=== PATIENT | female | born 2005 | race Caucasian/White ===

== ENCOUNTER 2023-04-16 01:23 | Inpatient (IN) ==
[2023-04-16 02:50] LABS: Appearance Urine Clear (Clear); Bacteria Urine Automated Negative (Negative); Bilirubin Urine Negative (Negative); Blood Urine Trace (Negative); Cast Urine Automated 0 /lpf (0-5); Color Urine Yellow; Glucose Urine UA Negative (Negative); Ketones Urine Negative (Negative); Leukocyte Esterase Urine Negative (Negative); Nitrite Urine Negative (Negative); Protein Urine Negative (Negative); RBC Urine Automated 0-4 /hpf (0-4); Specific Gravity Urine 1.004 (1.000-1.030); Urobilinogen Urine Negative (Negative); WBC Urine Automated 0 /hpf (0-5); pH Urine 7.5 (4.5-7.5)
[2023-04-16 02:51] LABS: Pregnancy Test, Serum Negative (Negative)
[2023-04-16 02:54] LABS: Acetaminophen < 3 ug/ml (10-30); Basophils # (auto) 0.04 K/uL (0.00-0.20); Basophils % (auto) 0.6 %; Eosinophils # (auto) 0.08 K/uL (0.00-0.50); Eosinophils % (auto) 1.1 %; Hematocrit (blood only) 36.6 % (37.0-47.0); Hemoglobin 12.9 g/dl (12.0-16.0); Immature Granulocytes # (auto) 0.01 K/uL (0.01-0.20); Immature Granulocytes % (auto) 0.1 %; Lymphocytes # (auto) 2.45 K/uL (1.20-3.40); Lymphocytes % (auto) 34.3 %; Mean Corpuscular Hemoglobin 31.7 pg (25.0-34.0); Mean Corpuscular Hgb Conc 35.2 g/dL (32.0-36.0); Mean Corpuscular Volume 89.9 fL (80.0-100.0); Mean Platelet Volume 11.4 fL (9.4-12.4); Monocytes # (auto) 0.19 K/uL (0.11-0.59); Monocytes % (auto) 2.7 %; Neutrophils # (auto) 4.37 K/uL (1.40-6.50); Neutrophils % (auto) 61.2 %; Platelet Count 236 K/uL (130-400); RDW Coefficient of Variation 12.3 % (11.5-14.5); RDW Standard Deviation 40.6 fL (36.4-46.3); Red Blood Count 4.07 M/uL (4.20-5.40); Salicylate < 3.0 mg/dl (3.0-30); White Blood Count 7.14 K/ul (4.8-10.8)
[2023-04-16 02:57] LABS: Alanine Aminotransferase 11 U/L (7-52); Albumin Globulin Ratio 1.8 (0.9-2); Albumin Level 4.8 gm/dl (3.4-5.0); Alkaline Phosphatase 54 U/L (34-104); Anion Gap 10 (3-11); Aspartate Aminotransferase 14 U/L (13-39); BUN Creatinine Ratio 10.8 (10-20); Bilirubin,Total 0.4 mg/dl (0.2-1.0); Blood Urea Nitrogen 7 mg/dl (6-23); Carbon Dioxide 23 mmol/L (21-32); Chloride 110 mmol/L (98-107); Est GFR (African American) 149.2 ml/min; Est GFR (Non-African American) 128.7 ml/min; Globulin 2.7 gm/dl (2.5-4.0); Glucose 114 mg/dl (70-99(Fasting)); Potassium 3.4 mmol/L (3.5-5.1); Sodium 143 mmol/L (136-145); Total Protein 7.5 gm/dl (6.0-8.3)
[2023-04-16 03:27] LABS: Amphetamines+Metham, Urine Neg (Neg); Barbiturates, Urine Neg (Neg); Benzodiazepine, Urine Neg (Neg); Cocaine, Urine Neg (Neg); MDMA (Ecstacy), Urine Neg (Neg); Methadone, Urine Neg (Neg); Opiate, Urine Neg (Neg); Phencyclidine, Urine Neg (Neg)
--- NOTE | 2023-04-16 05:23 | Emergency Department Note ---
Impression & Plan Suicide attempt by cutting of wrist, Alcohol intoxication The case was signed out to Dr. Walsh awaiting evaluation by the ED psychiatric case operator ED Provider Note NAME: PAOLA FREY AGE: 17 SEX: F ARRIVES VIA: [employer] INFORMANT: Patient ED PROVIDER(S): Anne Marie Connor DO CHIEF COMPLAINT: Suicidal ideation; left wrist laceration PLAN: Disposition: The case was signed out to Dr. Walsh awaiting evaluation by the ED psychiatric case operator Condition: Fair MEDICAL DECISION MAKING: This is a 17-year-old female patient who presents to the emergency department with police after cutting her left wrist with a knife. Patient had thoughts of suicide. She used a serrated knife to make a superficial laceration to the ventral surface of her left wrist. She also had thoughts of wanting to overdose on medications but could not find any meds to do so. She has had these thoughts for over a year but acted upon them tonight. She had been drinking alcohol tonight. The patient's alcohol level was greater than 200. We are awaiting sobriety so that the patient can be medically cleared and evaluated by the ED psychiatric case operator. The police have petitioned a 302 if the patient is unwilling to sign herself in voluntarily for inpatient psychiatric care. I discussed the nella e with the patient's mother who is arrived at the bedside. The case will be signed out to Dr. Walsh awaiting sobriety and further evaluation by the ED psychiatric case operator. Triage Nursing notes reviewed and agree with them. Vital Signs: reviewed and unremarkable Differential diagnosis: Alcohol intoxication, suicidal ideation, self-injurious behavior, suicide attempt, mood disorder Diagnostics independently interpreted by me: Laboratory studies: See below HPI: 17/F arrives for evaluation of wrist laceration. Patient has had suicidal thoughts intermittently over the past 1.5 years. Tonight, the patient used a serrated knife to cut the ventral surface of her left wrist. She also describes having thoughts of wanting to overdose on medications but was unable to find any medications to do so. She does admit to drinking some alcohol tonight. She denies any triggering or inciting events. PAST MEDICAL HISTORY:Patient describes feeling thoughts of suicide for more than 1 year. She has previously cut her left upper arm approximately 1 year ago. 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 She is from [facility]. She denies any drug use. She does occasionally drink alcohol. HOME MEDICATIONS: None ALLERGIES: Amoxicillin VITALS:See Below PHYSICAL EXAMINATION: HEENT: Head - normocephalic and atraumatic. Pupils are equal, round, and reactive to light. Extraocular eye muscles are intact, and sclera are anicteric. Nose - moist nasal mucosa without discharge. Mouth - moist buccal mucosa. Oropharynx is nonerythematous and there is no tonsillar exudate or edema noted. Neck: Supple; no cervical lymphadenopathy or thyromegaly Heart: Regular rate and rhythm. There is a normal S1 and S2 with no murmurs, clicks, or gallops appreciated. Lungs: Clear to auscultation bilaterally with no wheezes, rales, or rhonchi. Abdomen: Soft, completely nontender, nondistended, with good bowel sounds. There are no palpable pulsatile masses or hepatosplenomegaly. There is no gu arding, rigidity, or rebound noted. Extremities: 4 cm superficial laceration to the ventral left wrist. Skin: warm and dry with good turgor and no rashes. Psych: The patient is tearful and appears depressed. She does admit to being suicidal. ED COURSE: Times/Reassessments: 215: Patient was evaluated in room A-6. A complete history and physical was performed. Laboratory studies were drawn as above. Patient was resting comfortably. We are awaiting some time for her to sober up. The wound on her left wrist was cleansed and dressed with a sterile dressing. Patient is sleeping. Patient's mother has arrived at the bedside. The case was signed out to Dr. Walsh awaiting sobriety. Anne Marie Connor DO Past Med/Surg History Social History Smoking Status: Never smoker Preferred Language: Amharic Communication Ability: Effective Butt Maker Required: No Beliefs That Will Affect Care: None Feels Safe at Home: Yes Gender Identity: Female Assistive Devices: None Allergies Allergies Allergy/AdvReac Type Severity Reaction Status Date / Time amoxicillin Allergy Intermediate Hives Unverified 04/16/23 13:08 Results & Data (ED) Vital Signs Vital Signs - 24 hr 04/16/23 01:57 04/16/23 03:18 04/16/23 05:00 Temperature 36.7 C Temperature Source Oral Pulse Rate 98 H Respiratory Rate 20 Respiratory Effort / Characteristics Non-Labored Spontaneous Non-Labored Non-Labored Respiratory Depth Normal Normal Normal Respiratory Pattern Regular Regular Blood Pressure 125/77 Blood Pressure Mean 93 Pulse Oximetry 97 Oxygen Delivery Method Room Air Room Air Room Air Sepsis Recent Fever Within 48 Hours No Sepsis New/Unexplained Change in Mental Status No Sepsis Action Taken by Nursing No Action Required Laboratory Data 04/16/23 01:40 04/16/23 01:40 Lab Results 04/16/23 04/16/23 04/16/23 Range/Units 01:31 01:31 01:40 WBC 7.14 (4.8-10.8) K/ul RBC 4.07 L (4.20-5.40) M/uL Hgb 12.9 (12.0-16.0) g/dl Hct 36.6 L (37.0-47.0) % MCV 89.9 (80.0-100.0) fL MCH 31.7 (25.0-34.0) pg MCHC 35.2 (32.0-36.0) g/dL RDW Std Deviation 40.6 (36.4-46.3) fL RDW Coeff of Aissatou 12.3 (11.5-14.5) % Plt Count 236 (130-400) K/uL MPV 11.4 (9.4-12.4) fL Immature Gran % (Auto) 0.1 % Neut % (Auto) 61.2 % Lymph % (Auto) 34.3 % [place] % (Auto) 2.7 % Eos % (Auto) 1.1 % Baso % (Auto) 0.6 % Neut # (Auto) 4.37 (1.40-6.50) K/uL Lymph # (Auto) 2.45 (1.20-3.40) K/uL [place] # (Auto) 0.19 (0.11-0.59) K/uL Eos # (Auto) 0.08 (0.00-0.50) K/uL Baso # (Auto) 0.04 (0.00-0.20) K/uL Immature Gran # (Auto) 0.01 (0.01-0.20) K/uL Sodium (136-145) mmol/L Potassium (3.5-5.1) mmol/L Chloride (98-107) mmol/L Carbon Dioxide (21-32) mmol/L Anion Gap (3-11) BUN (6-23) mg/dl Creatinine (0.6-1.2) mg/dl Est Cr Clr Drug Dosing Est GFR ( Amer) ml/min Est GFR (Non-Af Amer) ml/min BUN/Creatinine Ratio (10-20) Glucose (70-99(Fasting)) mg/dl Calcium (8.6-10.3) mg/dl Total Bilirubin (0.2-1.0) mg/dl AST (13-39) U/L ALT (7-52) U/L Alkaline Phosphatase (34-104) U/L Total Protein (6.0-8.3) gm/dl Albumin (3.4-5.0) gm/dl Globulin (2.5-4.0) gm/dl Albumin/Globulin Ratio (0.9-2) TSH (0.300-4.500) uIu/ml HCG, Qual (Negative) Urine Color Yellow Urine Appearance Clear (Clear) Urine pH 7.5 (4.5-7.5) Ur Specific Cord 1.004 (1.000-1.030) Urine Protein Negative (Negative) Urine Glucose (UA) Negative (Negative) Urine Ketones Negative (Negative) Urine Blood Trace H (Negative) Urine Nitrite Negative (Negative) Urine Bilirubin Negative (Negative) Urine Urobilinogen Negative (Negative) Ur Leukocyte Esterase Negative (Negative) Urine WBC (Auto) 0 (0-5) /hpf Urine RBC (Auto) 0-4 (0-4) /hpf U Hyaline Cast (Auto) 0 (0-5) /lpf U Epithel Cells (Auto) 5-10 H (0-5) /lpf Urine Bacteria (Auto) Negative (Negative) Salicylates (3.0-30) mg/dl Urine Opiates Screen Neg (Neg) Ur Methadone, Qual Neg (Neg) Acetaminophen (10-30) ug/ml Urine Barbiturates Neg (Neg) Ur Phencyclidine (PCP) Neg (Neg) U Amphetamin/Meth Scrn Neg (Neg) MDMA (Ecstasy) Screen Neg (Neg) U Benzodiazepines Scrn Neg (Neg) Ur Cocaine Metabolite Neg (Neg) U Marijuana (THC) Screen Neg (Neg) Ethyl Alcohol mg/dL (<10.0) mg/dl SARS-CoV-2, RNA, NAAT (NEGATIVE) 04/16/23 04/16/23 04/16/23 Range/Units 01:40 01:40 01:40 WBC (4.8-10.8) K/ul RBC (4.20-5.40) M/uL Hgb (12.0-16.0) g/dl Hct (37.0-47.0) % MCV (80.0-100.0) fL MCH (25.0-34.0) pg MCHC (32.0-36.0) g/dL RDW Std Deviation (36.4-46.3) fL RDW Coeff of Aissatou (11.5-14.5) % Plt Count (130-400) K/uL MPV (9.4-12.4) fL Immature Gran % (Auto) % Neut % (Auto) % Lymph % (Auto) % [place] % (Auto) % Eos % (Auto) % Baso % (Auto) % Neut # (Auto) (1.40-6.50) K/uL Lymph # (Auto) (1.20-3.40) K/uL [place] # (Auto) (0.11-0.59) K/uL Eos # (Auto) (0.00-0.50) K/uL Baso # (Auto) (0.00-0.20) K/uL Immature Gran # (Auto) (0.01-0.20) K/uL Sodium 143 (136-145) mmol/L Potassium 3.4 L (3.5-5.1) mmol/L Chloride 110 H (98-107) mmol/L Carbon Dioxide 23 (21-32) mmol/L Anion Gap 10 (3-11) BUN 7 (6-23) mg/dl Creatinine 0.65 (0.6-1.2) mg/dl Est Cr Clr Drug Dosing Not Reportable Est GFR ( Amer) 149.2 ml/min Est GFR (Non-Af Amer) 128.7 ml/min BUN/Creatinine Ratio 10.8 (10-20) Glucose 114 H (70-99(Fasting)) mg/dl Calcium 9.0 (8.6-10.3) mg/dl Total Bilirubin 0.4 (0.2-1.0) mg/dl AST 14 (13-39) U/L ALT 11 (7-52) U/L Alkaline Phosphatase 54 (34-104) U/L Total Protein 7.5 (6.0-8.3) gm/dl Albumin 4.8 (3.4-5.0) gm/dl Globulin 2.7 (2.5-4.0) gm/dl Albumin/Globulin Ratio 1.8 (0.9-2) TSH 2.668 (0.300-4.500) uIu/ml HCG, Qual (Negative) Urine Color Urine Appearance (Clear) Urine pH (4.5-7.5) Ur Specific Cord (1.000-1.030) Urine Protein (Negative) Urine Glucose (UA) (Negative) Urine Ketones (Negative) Urine Blood (Negative) Urine Nitrite (Negative) Urine Bilirubin (Negative) Urine Urobilinogen (Negative) Ur Leukocyte Esterase (Negative) Urine WBC (Auto) (0-5) /hpf Urine RBC (Auto) (0-4) /hpf U Hyaline Cast (Auto) (0-5) /lpf U Epithel Cells (Auto) (0-5) /lpf Urine Bacteria (Auto) (Negative) Salicylates < 3.0 L (3.0-30) mg/dl Urine Opiates Screen (Neg) Ur Methadone, Qual (Neg) Acetaminophen < 3 L (10-30) ug/ml Urine Barbiturates (Neg) Ur Phencyclidine (PCP) (Neg) U Amphetamin/Meth Scrn (Neg) MDMA (Ecstasy) Screen (Neg) U Benzodiazepines Scrn (Neg) Ur Cocaine Metabolite (Neg) U Marijuana (THC) Screen (Neg) Ethyl Alcohol mg/dL (<10.0) mg/dl SARS-CoV-2, RNA, NAAT (NEGATIVE) 04/16/23 04/16/23 04/16/23 Range/Units 01:40 01:40 07:49 WBC (4.8-10.8) K/ul RBC (4.20-5.40) M/uL Hgb (12.0-16.0) g/dl Hct (37.0-47.0) % MCV (80.0-100.0) fL MCH (25.0-34.0) pg MCHC (32.0-36.0) g/dL RDW Std Deviation (36.4-46.3) fL RDW Coeff of Aissatou (11.5-14.5) % Plt Count (130-400) K/uL MPV (9.4-12.4) fL Immature Gran % (Auto) % Neut % (Auto) % Lymph % (Auto) % [place] % (Auto) % Eos % (Auto) % Baso % (Auto) % Neut # (Auto) (1.40-6.50) K/uL Lymph # (Auto) (1.20-3.40) K/uL [place] # (Auto) (0.11-0.59) K/uL Eos # (Auto) (0.00-0.50) K/uL Baso # (Auto) (0.00-0.20) K/uL Immature Gran # (Auto) (0.01-0.20) K/uL Sodium (136-145) mmol/L Potassium (3.5-5.1) mmol/L Chloride (98-107) mmol/L Carbon Dioxide (21-32) mmol/L Anion Gap (3-11) BUN (6-23) mg/dl Creatinine (0.6-1.2) mg/dl Est Cr Clr Drug Dosing Est GFR ( Amer) ml/min Est GFR (Non-Af Amer) ml/min BUN/Creatinine Ratio (10-20) Glucose (70-99(Fasting)) mg/dl Calcium (8.6-10.3) mg/dl Total Bilirubin (0.2-1.0) mg/dl AST (13-39) U/L ALT (7-52) U/L Alkaline Phosphatase (34-104) U/L Total Protein (6.0-8.3) gm/dl Albumin (3.4-5.0) gm/dl Globulin (2.5-4.0) gm/dl Albumin/Globulin Ratio (0.9-2) TSH (0.300-4.500) uIu/ml HCG, Qual Negative (Negative) Urine Color Urine Appearance (Clear) Urine pH (4.5-7.5) Ur Specific Cord (1.000-1.030) Urine Protein (Negative) Urine Glucose (UA) (Negative) Urine Ketones (Negative) Urine Blood (Negative) Urine Nitrite (Negative) Urine Bilirubin (Negative) Urine Urobilinogen (Negative) Ur Leukocyte Esterase (Negative) Urine WBC (Auto) (0-5) /hpf Urine RBC (Auto) (0-4) /hpf U Hyaline Cast (Auto) (0-5) /lpf U Epithel Cells (Auto) (0-5) /lpf Urine Bacteria (Auto) (Negative) Salicylates (3.0-30) mg/dl Urine Opiates Screen (Neg) Ur Methadone, Qual (Neg) Acetaminophen (10-30) ug/ml Urine Barbiturates (Neg) Ur Phencyclidine (PCP) (Neg) U Amphetamin/Meth Scrn (Neg) MDMA (Ecstasy) Screen (Neg) U Benzodiazepines Scrn (Neg) Ur Cocaine Metabolite (Neg) U Marijuana (THC) Screen (Neg) Ethyl Alcohol mg/dL 234.8 H (<10.0) mg/dl SARS-CoV-2, RNA, NAAT NEGATIVE (NEGATIVE) Administered Medications Escitalopram Oxalate (Escitalopram Oxalate 10 Mg Tab) 5 mg PO QAM ERIKA Stop: 05/16/23 13:59 Last Admin: 04/16/23 14:01 Dose: 5 mg Documented By: BNT Hydroxyzine HCl (Hydroxyzine Hcl 25 Mg Tab) 25 mg PO Q4H PRN PRN Reason: Anxiety Stop: 05/16/23 10:05 Last Admin: 04/16/23 12:03 Dose: 25 mg Documented By: BNT Discharge Plan Visit Data Chief Complaint: Mental Health Evaluation ED Provider: Gulshan Walsh Discharge Problem: Suicide attempt by cutting of wrist, Alcohol intoxication Patient Disposition: Admitted As Inpatient Discharge Instructions Interventions: ED Discharge Assessment Last Done: 04/16/23 10:05
--- NOTE | 2023-04-16 06:54 | Emergency Department Note ---
ED Visit Note I assumed care at the change of shift. The patient had presented after cutting her wrist and thinking about overdosing on medication. She apparently has been feeling suicidal for over a year. She was intoxicated with alcohol and felt clear of the alcohol effect by around 7 AM. There was a 302 petition. Patient, however, was voluntary. The patient was seen by psychiatry case management. She was evaluated by our psychiatric services, 3 S. The patient has been accepted voluntarily onto their floor. The voluntary paperwork was completed and signed. .
[2023-04-16] MEDS ORDERED: ALUMINUM/MAGNESIUM SUSP 30 ML UDC PO PRN (10:06)
[2023-04-16] MEDS ORDERED: SODIUM CHLORIDE 0.65% NA SOLN 45 ML (OCEAN) PRN (10:06)
[2023-04-16] MEDS ORDERED: ACETAMINOPHEN 325 MG TAB PO PRN (10:06)
[2023-04-16] MEDS ORDERED: BISMUTH SUBSALICYLATE LIQD 236 ML PO PRN (10:06)
[2023-04-16] MEDS ORDERED: hydrOXYzine HCl 25 MG TAB PO PRN (10:06)
[2023-04-16] MEDS ORDERED: MAGNESIUM HYDROXIDE SUSP 30 ML UDC PO PRN (10:06)
[2023-04-16] MEDS: hydrOXYzine HCl 25 MG TAB PO PRN ×2 (12:03→21:56)
--- NOTE | 2023-04-16 13:24 | History & Physical ---
Date of Service April 16, 2023 Impression / Recommendations Maurice Fish is a 17 year old woman and [employer] student with no formal psychiatric history who was admitted for worsening depression, anxiety, and SI with plan. Diagnostically consistent with major depressive disorder with anxious features as well as FREDI. She is deemed in need of psychiatric hospitalization for diagnostic clarification, safety and stabilization, medication management and development of further coping skills. Discussed medication treatment options in detail. Discussed risks, benefits and alternatives. Patient would like to start and consented to escitalopram for MDD and FREDI. Reviewed side effects including but not limited to: GI, WOODY, sexual side effects, and counseled on black box warning of potential for emergence of or increased SI and need to let staff know should this occur or should they feel unsafe. Also discussed importance of seeking emergency care following discharge if this side effect occurs in the future. (1) Major depressive disorder with current active episode: (2) FREDI (generalized anxiety disorder): (3) Deliberate self-cutting: Plan 04/16/2023: The patient was admitted to the [facility] ([facility] mental health unit) on q15 min checks (behavioral with suicide precautions) for safety. The patient will participate in group, recreational, and milieu therapies and will be offered additional individual and family sessions as clinically appropriate. -start escitalopram 5mg qd Inventory Assets Strengths: supportive relationships, willing to get treatment Needs: safety and stabilization, medication adjustment, additional coping skills, increased outpatient services Suicide Risk Level Suicide Risk Level: High-Moderate (q15 min suicide checks) (severe depression with SI with plan prior to admission but feels safe in the hospital, able to safety contract and agrees to let nursing/staff know should they develop plan, intent or feel unable to remain safe. ) Risk Factors Assessment Male: No : Yes Do You Have Access To A Gun?: No Health Problems: No Mental Health Diagnoses: Yes Substance Use Disorders: No Previous Attempt: No Family History of Suicide: No Previous Psychiatric Hospitalization: No Protective Factors Assessment Employed: Yes Stable Relationships: Yes Supportive Family: Yes Psychiatric History Identifying Data PAOLA FREY is a 17-year-old woman and [employer] sophomore who currently lives in an apartment with roommates, has no formal psychiatric history, and was admitted on 04/16/23 09:06 on a 201 voluntary commitment for worsening depression and SI with cutting her wrist and plan of overdosing on medication. Chief Complaint "I just remember having the thought". History of Present Illness Polina presents for psychiatric admission for worsening depression, self-harm via cutting her left wrist and SI with plan of overdosing on medication. She just returned to campus for the start of the college semester. She was drinking last evening and then had thoughts of suicide and cut her wrist and then was thinking about taking medications but couldn't find any access in the moment. She believes her roommate then called police who brought her to the ED. She has been experiencing SI intermittently for the last 1.5 years but thoughts tend to worsen in the summer. She has a good relationship with her parents but feels like she is a burden to them and feels this way in other relationships as well. Recent transition of moving back to college campus and had been nervous about being around her roommate because "she can make me feel not the best about myself". She endorses depressive symptoms including anhedonia, tearfulness, self-guilt, decreased energy, decreased motivation, concentration has been about the same but not very good, sleep has been stable, appetite is variable because decreased and normal. She endorses anxiety symptoms including excessive worry, restlessness, somatic symptoms of chest tightness/stomach pain, mood lability "feeling like I need to sob", fatigue, muscle tension and one recent panic attack over the summer. She is not currently prescribed any psychiatric medications. Further recent history per ED CM on 04/16/2023: "Met with Paola - obtained her verbal consent to speak with father and advised mother in route to ED. Paola stated she cut herself with suicidal intent tonight. She stated she has been having thoughts of suicide for "past year and half." She was unable to identify any stressor or trigger. She presented tearful with flat affect. She reports previous suicide approx. 1 year ago by cutting her upper arm. She denies HI or aggression. She denies SIB. She denies hallucinations, paranoia, or delusional thinking. She denies any prior mental health diagnosis or treatment history. She stated she has no medical issues and does not take any medicate. She stated she consumes alcohol socially and had a "medium amount" to drink tonight. She denies substance use. She denies legal issues. She denies trauma or abuse history." Psychiatric ROS notable for no current nor history of symptoms of radha, psy chosis, OCD. History of excessive exercising to lose weight and eating very healthy meals around age [age], none currently. Self-harm once via cutting her upper arm >1 year ago. Past Psychiatric History Current Psychiatric Diagnosis: No previous mental health diagnosis Outpatient Services: none Previous Psych Admissions: none Do You Have Access To A Gun?: No History of Previous Suicide Attempt: No Past Medication Trials: none Past Head Trauma/Neuro History History of Concussion/Seizure: No Allergies Allergy/AdvReac Type Severity Reaction Status Date / Time amoxicillin Allergy Intermediate Hives Unverified 04/16/23 13:08 Family History Family History of: Depression (maternal side) and Anxiety (maternal side ) Alcohol History Hx of Alcohol Use Over the Past 12 Months: Yes (ocassional; social) AUDIT Total Score: 4 Doesn't drink alcohol often but when she does drink it's socially. No history of legal/social/academic consequences. Doesn't like that she has worse anxiety after drinking. Smoking Use Smoking Status: Never smoker Substance History Hx of Prescription Med Misuse Over the Past 12 Months: No Hx of Over the Counter Med Misuse Over the Past 12 Months: No Hx of Inhalent Misuse Over the Past 12 Months: No Hx of Organic Substance Use Over the Past 12 Months: No Hx of Illegal Substances/Street Drug Use Over Past 12 Months: No Problems as a Result of Past Substance Use: None Identified Personal History Living Arrangements: Dorm Childhood: From [facility] near [facility], parents are , has a younger brother Highest Grade Completed: Some College (sophomore in criminology/legal studies) Employment Status: Student (and part-time at [employer]) Marital Status: Single Number Of Children: 0 Beliefs That Will Affect Care: None Current Legal Problems: No Hx Legal Problems: No Hx Traumatic Life Events: No Patient History Social History Smoking Status: Never smoker Preferred Language: Macedonian Communication Ability: Effective Bridge Carpenter Required: No Beliefs That Will Affect Care: None Feels Safe at Home: Yes Gender Identity: Female Assistive Devices: None Review of Systems Review of Systems: All systems reviewed & are unremarkable except as noted in HPI & below (laceration to left wrist with bandage) Physical Exam Psychiatric: Orientation: alert and oriented x 3 Apperance: appropriately dressed and appropriately groomed Eye Contact: good eye contact Motor Behavior: no abnormal motor movements Speech: normal rate/rhythm/volume of speech Affect: + depressed affect and + anxious affect Mood: + depressed mood and + anxious mood Thought Process: goal directed thought process Thought Content: reality based without delusions Suicidal Thoughts: denies suicidal intent; + reports suicidal thoughts (intermittent thoughts ) and + reports suicidal plan (none for hospital, outside for overdosing) Homicidal Thoughts: denies homicidal thoughts Hallucinations: no auditory hallu cinations and no visual hallucinations Cognition: recent memory grossly intact, remote memory grossly intact, attention grossly intact and language grossly intact Estimated Intelligence: consistent with education level Insight: + fair insight Judgment: + limited judgement Vital Signs (Past 24 Hours): Last Vital Signs Temp 36.9 C 04/16/23 09:39 Pulse 85 04/16/23 09:39 Resp 18 04/16/23 09:39 BP 106/79 04/16/23 09:39 Pulse Ox 97 04/16/23 01:57 O2 Del Method Room Air 04/16/23 09:39 Exam Statement: A physical exam was performed in the ED by for the purposes of medical clearance. I accept that physical as correct and adequate for the purposes of the inpatient physical exam. Results & Data ([facility]) Laboratory Results Laboratory Results - last 24 hr 04/16/23 04/16/23 04/16/23 01:31 01:31 01:40 WBC 7.14 RBC 4.07 L Hgb 12.9 Hct 36.6 L MCV 89.9 MCH 31.7 MCHC 35.2 RDW Std Deviation 40.6 RDW Coeff of Aissatou 12.3 Plt Count 236 MPV 11.4 Immature Gran % (Auto) 0.1 Neut % (Auto) 61.2 Lymph % (Auto) 34.3 [place] % (Auto) 2.7 Eos % (Auto) 1.1 Baso % (Auto) 0.6 Neut # (Auto) 4.37 Lymph # (Auto) 2.45 [place] # (Auto) 0.19 Eos # (Auto) 0.08 Baso # (Auto) 0.04 Immature Gran # (Auto) 0.01 Sodium Potassium Chloride Carbon Dioxide Anion Gap BUN Creatinine Est Cr Clr Drug Dosing Est GFR ( Amer) Est GFR (Non-Af Amer) BUN/Creatinine Ratio Glucose Calcium Total Bilirubin AST ALT Alkaline Phosphatase Total Protein Albumin Globulin Albumin/Globulin Ratio TSH HCG, Qual Urine Color Yellow Urine Appearance Clear Urine pH 7.5 Ur Specific [place] 1.004 Urine Protein Negative Urine Glucose (UA) Negative Urine Ketones Negative Urine Blood Trace H Urine Nitrite Negative Urine Bilirubin Negative Urine Urobilinogen Negative Ur Leukocyte Esterase Negative Urine WBC (Auto) 0 Urine RBC (Auto) 0-4 U Hyaline Cast (Auto) 0 U Epithel Cells (Auto) 5-10 H Urine Bacteria (Auto) Negative Salicylates Urine Opiates Screen Neg Ur Methadone, Qual Neg Acetaminophen Urine Barbiturates Neg Ur Phencyclidine (PCP) Neg U Amphetamin/Meth Scrn Neg MDMA (Ecstasy) Screen Neg U Benzodiazepines Scrn Neg Ur Cocaine Metabolite Neg U Marijuana (THC) Screen Neg Ethyl Alcohol mg/dL SARS-CoV-2, RNA, NAAT 04/16/23 04/16/23 04/16/23 01:40 01:40 01:40 WBC RBC Hgb Hct MCV MCH MCHC RDW Std Deviation RDW Coeff of Aissatou Plt Count MPV Immature Gran % (Auto) Neut % (Auto) Lymph % (Auto) [place] % (Auto) Eos % (Auto) Baso % (Auto) Neut # (Auto) Lymph # (Auto) [place] # (Auto) Eos # (Auto) Baso # (Auto) Immature Gran # (Auto) Sodium 143 Potassium 3.4 L Chloride 110 H Carbon Dioxide 23 Anion Gap 10 BUN 7 Creatinine 0.65 Est Cr Clr Drug Dosing Not Reportable Est GFR ( Amer) 149.2 Est GFR (Non-Af Amer) 128.7 BUN/Creatinine Ratio 10.8 Glucose 114 H Calcium 9.0 Total Bilirubin 0.4 AST 14 ALT 11 Alkaline Phosphatase 54 Total Protein 7.5 Albumin 4.8 Globulin 2.7 Albumin/Globulin Ratio 1.8 TSH 2.668 HCG, Qual Urine Color Urine Appearance Urine pH Ur Specific [place] Urine Protein Urine Glucose (UA) Urine Ketones Urine Blood Urine Nitrite Urine Bilirubin Urine Urobilinogen Ur Leukocyte Esterase Urine WBC (Auto) Urine RBC (Auto) U Hyaline Cast (Auto) U Epithel Cells (Auto) Urine Bacteria (Auto) Salicylates < 3.0 L Urine Opiates Screen Ur Methadone, Qual Acetaminophen < 3 L Urine Barbiturates Ur Phencyclidine (PCP) U Amphetamin/Meth Scrn MDMA (Ecstasy) Screen U Benzodiazepines Scrn Ur Cocaine Metabolite U Marijuana (THC) Screen Ethyl Alcohol mg/dL SARS-CoV-2, RNA, NAAT 04/16/23 04/16/23 04/16/23 01:40 01:40 07:49 WBC RBC Hgb Hct MCV MCH MCHC RDW Std Deviation RDW Coeff of Aissatou Plt Count MPV Immature Gran % (Auto) Neut % (Auto) Lymph % (Auto) [place] % (Auto) Eos % (Auto) Baso % (Auto) Neut # (Auto) Lymph # (Auto) [place] # (Auto) Eos # (Auto) Baso # (Auto) Immature Gran # (Auto) Sodium Potassium Chloride Carbon Dioxide Anion Gap BUN Creatinine Est Cr Clr Drug Dosing Est GFR ( Amer) Est GFR (Non-Af Amer) BUN/Creatinine Ratio Glucose Calcium Total Bilirubin AST ALT Alkaline Phosphatase Total Protein Albumin Globulin Albumin/Globulin Ratio TSH HCG, Qual Negative Urine Color Urine Appearance Urine pH Ur Specific [place] Urine Protein Urine Glucose (UA) Urine Ketones Urine Blood Urine Nitrite Urine Bilirubin Urine Urobilinogen Ur Leukocyte Esterase Urine WBC (Auto) Urine RBC (Auto) U Hyaline Cast (Auto) U Epithel Cells (Auto) Urine Bacteria (Auto) Salicylates Urine Opiates Screen Ur Methadone, Qual Acetaminophen Urine Barbiturates Ur Phencyclidine (PCP) U Amphetamin/Meth Scrn MDMA (Ecstasy) Screen U Benzodiazepines Scrn Ur Cocaine Metabolite U Marijuana (THC) Screen Ethyl Alcohol mg/dL 234.8 H SARS-CoV-2, RNA, NAAT NEGATIVE Current Inpatient Medications Current Inpatient Medications: Current Inpatient Medications Acetaminophen (Acetaminophen 325 Mg Tab) 650 mg PO Q4H PRN PRN Reason: Headache or Minor Fever Stop: 05/16/23 10:05 Al Hydrox/Mg Hydrox/Simethicone (Aluminum/Magnesium Susp 30 Ml Udc) 30 ml PO Q4H PRN PRN Reason: GI Upset Stop: 05/16/23 10:05 Bismuth Subsalicylate (Bismuth Subsalicylate Liqd 236 Ml) 15 ml PO PRN PRN PRN Reason: Loose Stool Stop: 05/16/23 10:05 Hydroxyzine HCl (Hydroxyzine Hcl 25 Mg Tab) 50 mg PO HSZ PRN PRN Reason: Insomnia Stop: 05/16/23 10:05 Hydroxyzine HCl (Hydroxyzine Hcl 25 Mg Tab) 25 mg PO Q4H PRN PRN Reason: Anxiety Stop: 05/16/23 10:05 Last Admin: 04/16/23 12:03 Dose: 25 mg Magnesium Hydroxide (Magnesium Hydroxide Susp 30 Ml Udc) 30 ml PO DAILY PRN PRN Reason: Constipation Stop: 05/16/23 10:05 Sodium Chloride (Sodium Chloride 0.65% Na Soln 45 Ml ([place])) 1 - 2 sprays NA PRN PRN PRN Reason: Nasal Dryness/Congestion Stop: 05/16/23 10:05
[2023-04-16] MEDS: ESCITALOPRAM OXALATE 10 MG TAB PO SCH (14:01)
--- NOTE | 2023-04-17 08:51 | Psychiatric Progress Note ---
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 Diagnostically consistent with major depressive disorder with anxious features as well as FREDI. She is deemed in need of psychiatric hospitalization for diagnostic clarification, safety and stabilization, medication management and development of further coping skills. 04/17/2023: Mood improving, slight stomach issues with escitalopram but none today. Agrees to dose increase. SI reducing. Overall, I spent a total of 35 minutes with this case including review of chart records, direct evaluation of the patient at bedside, counseling the patient, ordering medication, discussion of the patient during treatment team, and documentation in the electronic health record. (1) Major depressive disorder with current active episode: (2) FREDI (generalized anxiety disorder): (3) Deliberate self-cutting: Plan 04/17/2023: Increase escitalopram to 10mg qAM tomorrow, needs family meeting 04/16/2023: The patient was admitted to the [facility] ([facility] mental health unit) on q15 min checks (behavioral with suicide precautions) for safety. The patient will participate in group, recreational, and milieu therapies and will be offered additional individual and family sessions as clinically appropriate. -start escitalopram 5mg qd Inventory Assets Strengths: supportive relationships, willing to get treatment Needs: safety and stabilization, medication adjustment, additional coping skills, increased outpatient services Suicide Risk Level Suicide Risk Level: Moderate (q15 min suicide checks) (depression with SI with plan prior to admission but mood improving feels safe in the hospital, able to safety contract and agrees to let nursing/staff know should they develop plan, intent or feel unable to remain safe. 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 Chief Complaint "I'm good". Review of Systems Sleep Information Total Hours of Sleep: 6.5 Meal Information Percent Meal Consumed - Lunch: 75 Percent Meal Consumed - Dinner: 0 Nutrition Comment: Admission Subjective Subjective Patient was seen & assessed and interval progress reviewed with treatment team nursing and social work. Had some stomach issues yesterday after getting escitalopram. Was able to attend evening meetings. Good visit with her parents last night. Today no stomach issues, agreeable to increasing escitalopram. Hopeful she may be able to discharge soon. Physical Exam Psychiatric Orientation: alert and oriented x 3 Apperance: appropriately dressed and appropriately groomed Eye Contact: good eye contact Motor Behavior: no abnormal motor movements Speech: normal rate/rhythm/volume of speech Affect: + anxious affect Mood: + anxious mood Thought Process: goal directed thought process Thought Content: reality based without delusions Suicidal Thoughts: denies suicidal thoughts, denies suicidal plan and denies suicidal intent Homicidal Thoughts: denies homicidal thoughts Hallucinations: no auditory hallucinations and no visual hallucinations Cognition: recent memory grossly intact, remote memory grossly intact, attention grossly intact and language grossly intact Estimated Intelligence: consistent with education level Insight: + fair insight Judgment: + limited judgement Vital Signs (Past 24 Hours) Last Vital Signs Temp 36.6 C 04/17/23 06:44 Pulse 71 04/17/23 06:45 Resp 16 04/17/23 06:44 BP 107/73 04/17/23 06:45 Pulse Ox 97 04/16/23 16:40 O2 Del Method Room Air 04/16/23 16:40 Results & Data ([facility]) Current Inpatient Medications Current Inpatient Medications: Current Inpatient Medications Acetaminophen (Acetaminophen 325 Mg Tab) 650 mg PO Q4H PRN PRN Reason: Headache or Minor Fever Stop: 05/16/23 10:05 Al Hydrox/Mg Hydrox/Simethicone (Aluminum/Magnesium Susp 30 Ml Udc) 30 ml PO Q4H PRN PRN Reason: GI Upset Stop: 05/16/23 10:05 Bismuth Subsalicylate (Bismuth Subsalicylate Liqd 236 Ml) 15 ml PO PRN PRN PRN Reason: Loose Stool Stop: 05/16/23 10:05 Escitalopram Oxalate (Escitalopram Oxalate 10 Mg Tab) 5 mg PO QAM ERIKA Stop: 05/16/23 13:59 Last Admin: 04/16/23 14:01 Dose: 5 mg Hydroxyzine HCl (Hydroxyzine Hcl 25 Mg Tab) 50 mg PO HSZ PRN PRN Reason: Insomnia Stop: 05/16/23 10:05 Hydroxyzine HCl (Hydroxyzine Hcl 25 Mg Tab) 25 mg PO Q4H PRN PRN Reason: Anxiety Stop: 05/16/23 10:05 Last Admin: 04/16/23 21:56 Dose: 25 mg Magnesium Hydroxide (Magnesium Hydroxide Susp 30 Ml Udc) 30 ml PO DAILY PRN PRN Reason: Constipation Stop: 05/16/23 10:05 Sodium Chloride (Sodium Chloride 0.65% Na Soln 45 Ml ([place])) 1 - 2 sprays NA PRN PRN PRN Reason: Nasal Dryness/Congestion Stop: 05/16/23 10:05 Mental Health & Subst Abuse Tx Therapist Name of Therapist: None Director Of Enterprise Architecture Name of Director Of Enterprise Architecture: None Post Discharge Appointments Primary Care Physician Name Of Family Doctor/PCP: SAM
[2023-04-17] MEDS: ESCITALOPRAM OXALATE 10 MG TAB PO SCH (08:55)
[2023-04-17] MEDS: hydrOXYzine HCl 25 MG TAB PO PRN (21:42)
[2023-04-18] MEDS ORDERED: ESCITALOPRAM OXALATE 10 MG TAB PO SCH (09:00)
--- NOTE | 2023-04-18 10:50 | Psychiatric Progress Note ---
Date of Service April 18, 2023 Impression / Recommendations Maurice Fish is a 17 year old woman and [employer] student with no formal psychiatric history who was admitted for worsening depression, anxiety, and SI with plan. Diagnostically consistent with major depressive disorder with anxious features as well as FREDI. She is deemed in need of psychiatric hospitalization for diagnostic clarification, safety and stabilization, medication management and development of further coping skills. 04/17/2023: Mood improving, slight stomach issues with escitalopram but none today. Agrees to dose increase. SI reducing. Overall, I spent a total of 35 minutes with this case including review of chart records, direct evaluation of the patient at bedside, counseling the patient, ordering medication, discussion of the patient during treatment team, and documentation in the electronic health record. (1) Major depressive disorder with current active episode: (2) FREDI (generalized anxiety disorder): (3) Deliberate self-cutting: Plan 04/17/2023: Increase escitalopram to 10mg qAM tomorrow, needs family meeting 04/16/2023: The patient was admitted to the [facility] ([facility] mental health unit) on q15 min checks (behavioral with suicide precautions) for safety. The patient will participate in group, recreational, and milieu therapies and will be offered additional individual and family sessions as clinically appropriate. -start escitalopram 5mg qd Inventory Assets Strengths: supportive relationships, willing to get treatment Needs: safety and stabilization, medication adjustment, additional coping skills, increased outpatient services Suicide Risk Level Suicide Risk Level: Moderate (q15 min suicide checks) (depression with SI with plan prior to admission but mood improving feels safe in the hospital, able to safety contract and agrees to let nursing/staff know should they develop plan, intent or feel unable to remain safe. 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 Chief Complaint "[]". Review of Systems Sleep Information Total Hours of Sleep: 6.5 Meal Information Percent Meal Consumed - Breakfast: 50 Percent Meal Consumed - Lunch: 100 Percent Meal Consumed - Dinner: 100 Nutrition Comment: Admission Subjective Subjective Patient was seen & assessed and interval progress reviewed with [treatment team] [nursing and social work] Physical Exam Psychiatric Orientation: alert and oriented x 3 Apperance: appropriately dressed and appropriately groomed Eye Contact: good eye contact Motor Behavior: no abnormal motor movements Speech: normal rate/rhythm/volume of speech Affect: + depressed affect and + anxious affect Mood: + depressed mood and + anxious mood Thought Process: goal directed thought process Thought Content: reality based without delusions Suicidal Thoughts: denies suicidal thoughts, denies suicidal plan and denies suicidal intent Homicidal Thoughts: denies homicidal thoughts Hallucinations: no auditory hallucinations and no visual hallucinations Cognition: recent memory grossly intact, remote memory grossly intact, attention grossly intact and language grossly intact Estimated Intelligence: consistent with education level Insight: + fair insight Judgment: + fair judgement Vital Signs (Past 24 Hours) Last Vital Signs Temp 36.7 C 04/18/23 06:38 Pulse 68 04/18/23 06:39 Resp 16 04/18/23 06:38 BP 110/72 04/18/23 06:39 Pulse Ox 97 04/16/23 16:40 O2 Del Method Room Air 04/16/23 16:40 Results & Data ([facility]) Current Inpatient Medications Current Inpatient Medications: Current Inpatient Medications Acetaminophen (Acetaminophen 325 Mg Tab) 650 mg PO Q4H PRN PRN Reason: Headache or Minor Fever Stop: 05/16/23 10:05 Al Hydrox/Mg Hydrox/Simethicone (Aluminum/Magnesium Susp 30 Ml Udc) 30 ml PO Q4H PRN PRN Reason: GI Upset Stop: 05/16/23 10:05 Bismuth Subsalicylate (Bismuth Subsalicylate Liqd 236 Ml) 15 ml PO PRN PRN PRN Reason: Loose Stool Stop: 05/16/23 10:05 Escitalopram Oxalate (Escitalopram Oxalate 10 Mg Tab) 10 mg PO QAM ERIKA Stop: 05/18/23 08:59 Last Admin: 04/18/23 09:29 Dose: 10 mg Hydroxyzine HCl (Hydroxyzine Hcl 25 Mg Tab) 50 mg PO HSZ PRN PRN Reason: Insomnia Stop: 05/16/23 10:05 Hydroxyzine HCl (Hydroxyzine Hcl 25 Mg Tab) 25 mg PO Q4H PRN PRN Reason: Anxiety Stop: 05/16/23 10:05 Last Admin: 04/17/23 21:42 Dose: 25 mg Magnesium Hydroxide (Magnesium Hydroxide Susp 30 Ml Udc) 30 ml PO DAILY PRN PRN Reason: Constipation Stop: 05/16/23 10:05 Sodium Chloride (Sodium Chloride 0.65% Na Soln 45 Ml ([place])) 1 - 2 sprays NA PRN PRN PRN Reason: Nasal Dryness/Congestion Stop: 05/16/23 10:05 Mental Health & Subst Abuse Tx Psychiatrist Name of Psychiatrist: None Therapist Name of Therapist: Dona Bran Therapist's Date of Therapist Appointment: 05/27/2023 Time of Therapist Appointment: 12:30pm Therapy Appointment Comment: [facility] [address], [address], [place], [place] Automatic Operator Name of Automatic Operator: Student Care and Advocacy Phone Number for Automatic Operator: [phone] Date of Appointment with Automatic Operator: 03 Time of Appointment with Automatic Operator: 11:15am Case Management Appointment Comment: Zoom link will be sent to [employer] email Post Discharge Appointments Primary Care Physician Name Of Family Doctor/PCP: [facility]- Precious Dennis Primary Care Date of Future Appointment with PCP: 04/22/23 Time of Appointment with PCP: 1100 Contact Information Discharge Discharge Address: [address] [place] [address]
--- NOTE | 2023-04-18 10:51 | Discharge Summary ---
Date of Service April 18, 2023 History of Present Illness Polina presents for psychiatric admission for worsening depression, self-harm via cutting her left wrist and SI with plan of overdosing on medication. She just returned to campus for the start of the college semester. She was drinking last evening and then had thoughts of suicide and cut her wrist and then was thinking about taking medications but couldn't find any access in the moment. She believes her roommate then called police who brought her to the ED. She has been experiencing SI intermittently for the last 1.5 years but thoughts tend to worsen in the summer. She has a good relationship with her parents but feels like she is a burden to them and feels this way in other relationships as well. Recent transition of moving back to college campus and had been nervous about being around her roommate because "she can make me feel not the best about myself". She endorses depressive symptoms including anhedonia, tearfulness, self-guilt, decreased energy, decreased motivation, concentration has been about the same but not very good, sleep has been stable, appetite is variable because decreased and normal. She endorses anxiety symptoms including excessive worry, restlessness, somatic symptoms of chest tightness/stomach pain, mood lability "feeling like I need to sob", fatigue, muscle tension and one recent panic attack over the summer. She is not currently prescribed any psychiatric medications. Further recent history per ED CM on 04/16/2023: "Met with Dayana - obtained her verbal consent to speak with father and advised mother in route to ED. Dayana stated she cut herself with suicidal intent tonight. She stated she has been having thoughts of suicide for "past year and half." She was unable to identify any stressor or trigger. She presented tearful with flat affect. She reports previous suicide approx. 1 year ago by cutting her upper arm. She denies HI or aggression. She denies SIB. She denies hallucinations, paranoia, or delusional thinking. She denies any prior mental health diagnosis or treatment history. She stated she has no medical issues and does not take any medicate. She stated she consumes alcohol socially and had a "medium amount" to drink tonight. She denies substance use. She denies legal issues. She denies trauma or abuse history." Psychiatric ROS notable for no current nor history of symptoms of radha, psychosis, OCD. History of excessive exercising to lose weight and eating very healthy meals around age [age], none currently. Self-harm once via cutting her upper arm >1 year ago. Physical Exam Psychiatric Orientation: alert and oriented x 3 Apperance: appropriately dressed and appropriately groomed Eye Contact: good eye contact Motor Behavior: no abnormal motor movements Speech: normal rate/rhythm/volume of speech Affect: + anxious affect and + constricted affect Mood: + anxious mood and + dysphoric mood Thought Process: goal directed thought process Thought Content: reality based without delusions Suicidal Thoughts: denies suicidal thoughts, denies suicidal plan and denies suicidal intent Homicidal Thoughts: denies homicidal thoughts Hallucinations: no auditory hallucinations and no visual hallucinations Cognition: recent memory grossly intact, remote memory grossly intact, attention grossly intact and language grossly intact Estimated Intelligence: consistent with education level Insight: + fair insight Judgment: + fair judgement Vital Signs (Past 24 Hours) Last Vital Signs Temp 36.7 C 04/18/23 06:38 Pulse 68 04/18/23 06:39 Resp 16 04/18/23 06:38 BP 110/72 04/18/23 06:39 Pulse Ox 97 04/16/23 16:40 O2 Del Method Room Air 04/16/23 16:40 See admission H&P and DOD assessment. Principal Diagnosis Major Depressive Disorder, Single Episode, Moderate Psychiatric Data See daily stay summary. In short, safety was maintained and the patient was cooperative with care. Medication changes included initiation of escitalopram at 5 mg daily and titration to 10 mg daily and they tolerated this well. A family session was held and safety plan was completed prior to discharge. Day of Discharge Assessment Today the patient voices readiness for discharge. They note improvement in mood and deny thoughts to harm self or others. Thoughts remain organized and they are improved from admission. There is no evidence of psychosis. They agree to take mediations as prescribed and keep follow-up appointments. They are stable for discharge to outpatient level of care. Transition of Care Transition Of Care Record: was reviewed with the patient Advance Directives Advance Directives Information Provided: Yes Advance Directives: No Mental Health Advance Directive: No Advance Directives on File: No Living Will: No Power of Automatic Toe Laster: No Advance Directives Reason:: Declines as Mental Health Visit. Risk Factors Assessment Male: No : Yes Do You Have Access To A Gun?: No Health Problems: No Mental Health Diagnoses: Yes Substance Use Disorders: No Previous Attempt: No Family History of Suicide: No Previous Psychiatric Hospitalization: No Protective Factors Assessment : No Responsible for Young Children: No Employed: Yes Stable Relationships: Yes Supportive Family: Yes Good Rapport with Provider: Yes Tobacco Cessation at Discharge Tobacco Cessation Medication Prescribed at Discharge: Not Applicable/Non-Smoker Total Time Total Time Spent: Greater Than 30 Minutes Total Time Includes: Examination of the patient, Discharge Planning, Medication Reconciliation and As well as (documentation) Discharge Data Lab Results 04/16/23 04/16/23 04/16/23 01:31 01:31 01:40 WBC 7.14 RBC 4.07 L Hgb 12.9 Hct 36.6 L MCV 89.9 MCH 31.7 MCHC 35.2 RDW Std Deviation 40.6 RDW Coeff of Aissatou 12.3 Plt Count 236 MPV 11.4 Immature Gran % (Auto) 0.1 Neut % (Auto) 61.2 Lymph % (Auto) 34.3 Garza % (Auto) 2.7 Eos % (Auto) 1.1 Baso % (Auto) 0.6 Neut # (Auto) 4.37 Lymph # (Auto) 2.45 Garza # (Auto) 0.19 Eos # (Auto) 0.08 Baso # (Auto) 0.04 Immature Gran # (Auto) 0.01 Sodium Potassium Chloride Carbon Dioxide Anion Gap BUN Creatinine Est Cr Clr Drug Dosing Est GFR ( Amer) Est GFR (Non-Af Amer) BUN/Creatinine Ratio Glucose Calcium Total Bilirubin AST ALT Alkaline Phosphatase Total Protein Albumin Globulin Albumin/Globulin Ratio TSH HCG, Qual Urine Color Yellow Urine Appearance Clear Urine pH 7.5 Ur Specific [place] 1.004 Urine Protein Negative Urine Glucose (UA) Negative Urine Ketones Negative Urine Blood Trace H Urine Nitrite Negative Urine Bilirubin Negative Urine Urobilinogen Negative Ur Leukocyte Esterase Negative Urine WBC (Auto) 0 Urine RBC (Auto) 0-4 U Hyaline Cast (Auto) 0 U Epithel Cells (Auto) 5-10 H Urine Bacteria (Auto) Negative Salicylates Urine Opiates Screen Neg Ur Methadone, Qual Neg Acetaminophen Urine Barbiturates Neg Ur Phencyclidine (PCP) Neg U Amphetamin/Meth Scrn Neg MDMA (Ecstasy) Screen Neg U Benzodiazepines Scrn Neg Ur Cocaine Metabolite Neg U Marijuana (THC) Screen Neg Ethyl Alcohol mg/dL SARS-CoV-2, RNA, NAAT 04/16/23 04/16/23 04/16/23 01:40 01:40 01:40 WBC RBC Hgb Hct MCV MCH MCHC RDW Std Deviation RDW Coeff of Aissatou Plt Count MPV Immature Gran % (Auto) Neut % (Auto) Lymph % (Auto) Garza % (Auto) Eos % (Auto) Baso % (Auto) Neut # (Auto) Lymph # (Auto) Garza # (Auto) Eos # (Auto) Baso # (Auto) Immature Gran # (Auto) Sodium 143 Potassium 3.4 L Chloride 110 H Carbon Dioxide 23 Anion Gap 10 BUN 7 Creatinine 0.65 Est Cr Clr Drug Dosing Not Reportable Est GFR ( Amer) 149.2 Est GFR (Non-Af Amer) 128.7 BUN/Creatinine Ratio 10.8 Glucose 114 H Calcium 9.0 Total Bilirubin 0.4 AST 14 ALT 11 Alkaline Phosphatase 54 Total Protein 7.5 Albumin 4.8 Globulin 2.7 Albumin/Globulin Ratio 1.8 TSH 2.668 HCG, Qual Urine Color Urine Appearance Urine pH Ur Specific [place] Urine Protein Urine Glucose (UA) Urine Ketones Urine Blood Urine Nitrite Urine Bilirubin Urine Urobilinogen Ur Leukocyte Esterase Urine WBC (Auto) Urine RBC (Auto) U Hyaline Cast (Auto) U Epithel Cells (Auto) Urine Bacteria (Auto) Salicylates < 3.0 L Urine Opiates Screen Ur Methadone, Qual Acetaminophen < 3 L Urine Barbiturates Ur Phencyclidine (PCP) U Amphetamin/Meth Scrn MDMA (Ecstasy) Screen U Benzodiazepines Scrn Ur Cocaine Metabolite U Marijuana (THC) Screen Ethyl Alcohol mg/dL SARS-CoV-2, RNA, NAAT 04/16/23 04/16/23 04/16/23 01:40 01:40 07:49 WBC RBC Hgb Hct MCV MCH MCHC RDW Std Deviation RDW Coeff of Aissatou Plt Count MPV Immature Gran % (Auto) Neut % (Auto) Lymph % (Auto) Garza % (Auto) Eos % (Auto) Baso % (Auto) Neut # (Auto) Lymph # (Auto) Garza # (Auto) Eos # (Auto) Baso # (Auto) Immature Gran # (Auto) Sodium Potassium Chloride Carbon Dioxide Anion Gap BUN Creatinine Est Cr Clr Drug Dosing Est GFR ( Amer) Est GFR (Non-Af Amer) BUN/Creatinine Ratio Glucose Calcium Total Bilirubin AST ALT Alkaline Phosphatase Total Protein Albumin Globulin Albumin/Globulin Ratio TSH HCG, Qual Negative Urine Color Urine Appearance Urine pH Ur Specific [place] Urine Protein Urine Glucose (UA) Urine Ketones Urine Blood Urine Nitrite Urine Bilirubin Urine Urobilinogen Ur Leukocyte Esterase Urine WBC (Auto) Urine RBC (Auto) U Hyaline Cast (Auto) U Epithel Cells (Auto) Urine Bacteria (Auto) Salicylates Urine Opiates Screen Ur Methadone, Qual Acetaminophen Urine Barbiturates Ur Phencyclidine (PCP) U Amphetamin/Meth Scrn MDMA (Ecstasy) Screen U Benzodiazepines Scrn Ur Cocaine Metabolite U Marijuana (THC) Screen Ethyl Alcohol mg/dL 234.8 H SARS-CoV-2, RNA, NAAT NEGATIVE Hospital Course (1) Major depressive disorder with current active episode: (2) FREDI (generalized anxiety disorder): (3) Deliberate self-cutting: Plan 04/17/2023: Increase escitalopram to 10mg qAM tomorrow, needs family meeting 04/16/2023: The patient was admitted to the [facility] ([facility] mental health unit) on q15 min checks (behavioral with suicide precautions) for safety. The patient will participate in group, recreational, and milieu therapies and will be offered additional individual and family sessions as clinically appropriate. -start escitalopram 5mg qd Mental Health & Subst Abuse Tx Psychiatrist Name of Psychiatrist: None Therapist Name of Therapist: Dona Bran Therapist's Date of Therapist Appointment: 05/27/2023 Time of Therapist Appointment: 12:30pm Therapy Appointment Comment: [address], [address], [place], [place] Foundry Worker General Name of Foundry Worker General: [facility]ocacy Phone Number for Foundry Worker General: [phone] Date of Appointment with Foundry Worker General: 03 Time of Appointment with Foundry Worker General: 11:15am Case Management Appointment Comment: Zoom link will be sent to [employer] email Post Discharge Appointments Primary Care Physician Name Of Family Doctor/PCP: [facility]- Precious Dennis Primary Care Date of Future Appointment with PCP: 04/22/23 Time of Appointment with PCP: 1100 Smoking Cessation Counseling Tobacco Cessation Medication Prescribed at Discharge: Not Applicable/Non-Smoker Contact Information Discharge Discharge Address: [address] [place] [address] Discharge Plan Discharge Items Patient Disposition: Home - Self-Care Reason For Visit: UNSPECIFIED DEPRESSIVE DISORDER Discharge Diagnosis: Major Depressive Disorder, Single Episode, Moderate Activity: Resume your previous activity Non-emergency contact: Primary Care Provider and Psychiatrist Call non-emergency contact if: you have any medication questions and your symptoms worsen Follow-up/Referrals: PCP,NO [Primary Care Provider] - Diet: Regular Addtl Attending Provider Instructions: SPECIAL CARE INSTRUCTIONS: 1. Follow through with your scheduled aftercare appointments. If unable to keep an appointment, please call to reschedule. 2. Take your medication only as prescribed. Medication should not be changed or stopped without the approval of your doctor. In the event of worsening symptoms or concerns about side effects, contact your doctor immediately. 3. Utilize new healthy coping skills, anger management skills, and stress management skills learned during your hospitalization. Journal feelings and process them with a support person. Identify stressors or situations that may result in relapse, deterioration or inappropriate behaviors and develop a plan to deal with those issues. 4. If your coping skills are ineffective and you are in crisis, contact your outpatient providers for direction. If unable to reach your providers, please call the [facility] CRISIS LINE AT , go to the [facility] walk-in center at [address] [place] [address] [facility], or go to the closest Emergency Room. 5. Avoid alcohol and un-prescribed drugs. 6. You have been provided with the Mental Health Advance Directives Pamphlet for your review. 7. Your condition is stable for discharge to outpatient level of care, but recovery is an ongoing process. Ifthoughts to harm yourself or others return, follow the safety plan developed during your stay. Planning for a safe return home includes securing weapons. Our treatment team recommends weaponsbe removed from the home until your outpatient provider reassesses your progress. In rare cases where the items themselvescannot be removed, guns and ammunitionshould be secured separatelyand keys stored by a reliable personoutside of the home. If you were admitted on an involuntary commitment, the police or other legal authorities may be involved in this process. AFTERCARE APPOINTMENTS: * Please call your insurance company prior to your scheduled appointment to confirm your aftercare providers are covered. Take your insurance information to your appointments. WHO TO CALL AND WHEN: Medical Emergencies: For questions or emergencies related to your hospital stay, please contact the Inpatient Behavioral Health Unit at [phone]. A construction safety manager is on-call 16/03 for the Behavioral Health Unit for emergencies At any time you feel your situation is an emergency, you may also call 911 immediately. Pending Studies at Discharge: No Stand-Alone Forms: [facility], Smoking Cessation Medications and DC Order Prescriptions: New escitalopram oxalate 10 mg Tablet 10 mg PO QAM 30 Days Qty: 30 0RF Discharge Orders: Discharge Order (Routine); Ordered 04/18/23 Ordered By: Boston Husain Admission Data Admit Date/Time: 04/16/23 09:06 Attending Provider: Eliz Galarza Admit Provider: Eliz Galarza Primary Care Provider: PCP,NO Coding Level of Care Code 13404 D/C day mgmt > 30 min Diagnoses Major depressive disorder with current active episode F32.9 FREDI (generalized anxiety disorder) F41.1 Deliberate self-cutting Z72.89 Time Spent (min) 35
== END 2023-04-18 13:25 | disposition home or self-care (01) | DRG 885 ==
LOC: ED 01:23 → 3S 09:06